=== PATIENT | female | born 1995 | race Caucasian/White ===

== ENCOUNTER 2016-07-23 20:56 | Emergency (ER) | payer BC, OTHER ==
[~2016-07-23] VITALS: Ht 167.6 cm; Wt 55.0 kg
[~2016-07-23 20:56] MED LIST: BACT800T5 PO; LORTA5 PO
[2016-07-23 20:57] VITALS: BP 148/86; PULSE 83; TEMP 98.8; O2SAT 100
[2016-07-23 21:08] VITALS: RESP 20
--- NOTE | 2016-07-23 21:25 | PD ---
HPI Chief Complaint: Headache Time Seen by Provider: 21:19 Travel History International Travel<30 days: No Contact w/Intl Traveler<30days: No Traveled to known affect area: No History of Present Illness HPI 20-year-old white female presents to emergency department for evaluation of headache. LOCATION: [place] QUALITY: Throbbing SEVERITY: 4/10 TIMING: Gradual onset DURATION: Since around 10 AM CONTACTS: Not applicable MODIFYING FACTORS: Worsened by noise and light. ASSOCIATED TIME AND SYMPTOMS: Associated nausea, dizziness, photophobia and feeling off balance. Patient states that she had an eye exam approximately one month ago was told that her eye pressures were mildly elevated. She was referred back to her doctor. She saw Dr. Gibbons who has ordered outpatient laboratory testing. She states that she has been too busy to have this done. She denies any history trauma. No history of prior headaches. No recent illness. She states that she typically takes Tylenol with relief of her headache. She took Tylenol at 10 AM this morning and she has not had anything since then. [facility] Past Medical History Narrative Medical Borderline elevated intraocular pressure Tetanus Vaccination: < 5 Years ?: Not LMP: 3 weeks ago : 1 Para: 1 Past Surgical History Narrative Surgical Laparotomy for blocked fallopian tube Genitourinary Surgery: Yes Social History Alcohol Use: Yes Tobacco Use: No Substance Use: No Allergies-Medications (Allergen,Severity, Reaction): Coded Allergies: No Known Allergies (Unverified , 07/23/16) Reported Meds & Prescriptions Reported Meds & Active Scripts Active No Active Prescriptions or Reported Medications Review of Systems Except as stated in HPI: all other systems reviewed are Neg Physical Exam Narrative GENERAL: Well-developed, well-nourished in no apparent distress. Nontoxic appearing. HEAD: Normocephalic, atraumatic. EYES: Pupils equal round and reactive. Extraocular motions intact. No scleral icterus. No injection or drainage. ENT: Nose clear. Throat without erythema, tonsillar hypertrophy or exudate. Uvula midline. Airway patent. NECK: Trachea midline. Supple, nontender, moves head freely. No central bony tenderness or spasm. CARDIOVASCULAR: Regular rate and rhythm without murmurs, gallops, or rubs. RESPIRATORY: Clear to auscultation. Breath sounds equal bilaterally. No wheezes , rales, or rhonchi. GASTROINTESTINAL: Abdomen soft, non-tender, nondistended. No hepato-splenomegaly , or palpable masses. No guarding. EXTREMITIES: No clubbing, cyanosis, or edema. No joint tenderness. BACK: Nontender without deformity. No flank tenderness. NEUROLOGICAL: Awake, alert and oriented x 3 .Cranial nerves grossly intact. Motor and sensory grossly within normal limits. Normal speech. Normal gait. Moves all extremities in a coordinated fashion. Data Data Last Documented VS Vital Signs Date Time Temp Pulse Resp B/P Pulse Ox O2 Delivery O2 Flow Rate FiO2 07/23/16 21:08 20 07/23/16 20:57 98.8 83 148/86 100 Room Air Orders Iv Access Insert/Monitor (07/23/16 21:17) Diphenhydramine Inj (Benadryl Inj) (07/23/16 21:30) Prochlorperazine Inj (Compazine Inj) (07/23/16 21:30) Sodium Chlor 0.9% 1000 Ml Inj (Ns 1000 M (07/23/16 21:30) Ct Brain W/O Iv Contrast(Rout) (07/23/16:17) Ed Urine Pregnancytest Poc (07/23/16:17) MDM Medical Decision Making Medical Screen Exam Complete: Yes Emergency Medical Condition: Yes Medical Record Reviewed: Yes Interpretation(s) Last [address] 07/23/162116 Signed Impressions: Service Date/Time: Saturday, July 23, 2016 22:43 - CONCLUSION: Normal noncontrast head CT. Edwin Thornton MD Differential Diagnosis MDM: High Differential diagnoses: Subarachnoid hemorrhage, intracranial bleed, aneurysm, pseudotumor, migraine, cluster headache, atypical migraine, temporal arteritis, connective tissue disorder, hypertension, temporal arteritis, sinusitis, sinus headache,malingering Narrative Course IV access is obtained. Patient's given Benadryl 50 mg IV, Compazine 10 mg IV and 1 L of normal saline IV. CT scan of the brain. CT of the brain is negative. Patient's headache is much improved. This is cephalgia Diagnosis Primary Impression: Cephalgia Qualified Code: R51 - Acute nonintractable headache, unspecified headache type Patient Instructions: General Instructions Additional Instructions: Rest. Increase fluids. Diclofenac for headache. Follow-up with a medical doctor this week for recheck. Return to the ER for emergencies. Med/Other Pt SpecificInfo: Prescription(s) given Scripts No Active Prescriptions or Reported Meds Disposition: 01 DISCHARGE HOME Condition: Stable Ishan Lopez July 23, 2016 21:25
[2016-07-23] MEDS ORDERED: SODIUM CHLOR 0.9% 1000 ML INJ 1,000 ML IV ONE (21:30)
[2016-07-23] MEDS ORDERED: diphenhydrAMINE HCL 50 MG/ML VIAL IV PUSH ONE (21:30)
[2016-07-23] MEDS ORDERED: PROCHLORPERAZINE INJ 10 MG/2 ML VIAL IV PUSH ONE (21:30)
--- NOTE | 2016-07-23 22:54 | RADRPT ---
EXAM DATE/TIME: 07/23/2016 22:43 [facility] COMPARISON: No previous studies available for comparison. INDICATIONS : Headache. RADIATION DOSE: 56.35 CTDIvol (mGy) MEDICAL HISTORY : None SURGICAL HISTORY : None. ENCOUNTER: Initial ACUITY: 1 day PAIN SCALE: 5/10 LOCATION: cranial TECHNIQUE: Multiple contiguous axial images were obtained of the head. Using automated exposure control and adj ustment of the mA and/or kV according to patient size, radiation dose was kept as low as reasonably a chievable to obtain optimal diagnostic quality images. FINDINGS: CEREBRUM: The ventricles are normal for age. No evidence of midline shift, mass lesion, hemorrhage or acute in farction. No extra-axial fluid collections are seen. POSTERIOR FOSSA: The cerebellum and brainstem are intact. The 4th ventricle is midline. The cerebellopontine angle i s unremarkable. EXTRACRANIAL: The visualized portion of the orbits is intact. Visualized paranasal sinuses and mastoid air cells ar e clear. SKULL: The calvaria is intact. No evidence of skull fracture. CONCLUSION: Normal noncontrast head CT. Edwin Thornton MD on July 23, 2016 at 22:50 Board Certified Radiologist. This report was verified electronically.
[2016-07-23] MEDS ORDERED: DICL50TA3 PO (23:08)
== END 2016-07-24 00:21 | disposition home or self-care (01) ==
LOC: NEPD 20:56
DX: R51 Headache (principal)
CPT/HCPCS: 70450; 84703; 96374; 96375; 99284; J0780; J1200; J7030

== ENCOUNTER 2016-11-14 22:55 | Emergency (ER) | payer BC ==
[~2016-11-14 22:55] MED LIST changes: -BACT800T5 PO; +DICL50TA3 PO; -LORTA5 PO
[2016-11-14 22:56] VITALS: BP 135/74; PULSE 98; RESP 16; TEMP 98.7; O2SAT 100
[2016-11-15 00:09] LABS: BACTERIA, URINE RARE /hpf; BLOOD, URINE SMALL (NEG); COMMENT (UR) CULTURE INDICATED; CULTURE IF INDICATED CULTURE INDICATED; GLUCOSE,URINE NEG (NEG); KETONE, URINE NEG (NEG); MUCUS URINE FEW /lpf (OCC); NITRITE,URINE NEG (NEG); PH, URINE 6.5 (5.0-8.5); SQUAMOUS EPITHELIAL CELL URINE <1 /hpf (0-5); URINE COLOR LIGHT-YELLOW (YELLW/STRAW)
[2016-11-15] MEDS ORDERED: CHOL5000 PO (00:10)
--- NOTE | 2016-11-15 00:47 | PD ---
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 She also states she has been having vaginal discharge. She states that she is having BV symptoms. She denies any nausea, vomiting, or any other symptoms. Modifying Factors: None Associated Signs & Symptoms: Vaginal discharge, lower back and lower abdominal discomfort Risk Factors: None PFSH Past Medical History Diminished Hearing: No Medical other: Yes (VIT D DIFICIENCY ) Immunizations Current: Yes ?: Not LMP: 10/31/16 : 1 Para: 1 Past Surgical History Genitourinary Surgery: Yes Other Surgery: Yes (SX ON L FALLOPIAN TUBE ) Social History Alcohol Use: Yes (OCC) Tobacco Use: No Substance Use: No Allergies-Medications (Allergen,Severity, Reaction): Coded Allergies: No Known Allergies (Unverified , 11/15/16) Reported Meds & Prescriptions Reported Meds & Active Scripts Active Reported Vitamin D3 (Cholecalciferol) 5,000 Unit Cap 5,000 Units PO DAILY Review of Systems Except as stated in HPI: all other systems reviewed are Neg Physical Exam Narrative GENERAL: Young white female patient currently none acute distress. Awake and oriented 3. SKIN: Focused skin assessment warm/dry. HEAD: Atraumatic. Normocephalic. EYES: Pupils equal and round. No scleral icterus. No injection or drainage. ENT: No nasal bleeding or discharge. Mucous membranes pink and moist. NECK: Trachea midline. No JVD. CARDIOVASCULAR: Regular rate and rhythm. No murmur appreciated. RESPIRATORY: No accessory muscle use. Clear to auscultation. Breath sounds equal bilaterally. GASTROINTESTINAL: Abdomen soft, mild suprapubic tenderness without guarding or rebound, nondistended. Hepatic and splenic margins not palpable. GENITOURINARY: Normal external genitalia without lesions or erythema. Vaginal vault without blood but notable for copious whitish drainage. Cervical os was closed without drainage. No cervical motion tenderness. Uterus nontender. MUSCULOSKELETAL: No obvious deformities. No clubbing. No cyanosis. No edema. NEUROLOGICAL: Awake and alert. No obvious cranial nerve deficits. Motor grossly within normal limits. Normal speech. PSYCHIATRIC: Appropriate mood and affect; insight and judgment normal. Data Data Last Documented VS Vital Signs Date Time Temp Pulse Resp B/P (MAP) Pulse Ox O2 Delivery O2 Flow Rate FiO2 11/14/16 22:56 98.7 98 16 135/74 (94) 100 Room Air Orders Orders Urinalysis - C+S If Indicated (11/14/16 23:38) Ed Urine Pregnancytest Poc (11/14/16 23:38) Urine Culture (11/14/16 23:30) Gc And Chlamydia Pcr (11/15/16 00:44) Wet Prep Profile (11/15/16 00:44) Labs Laboratory Tests Test 11/14/16 23:30 Urine Color LIGHT-YELLOW Urine Turbidity HAZY Urine pH 6.5 Urine Specific [place] 1.005 Urine Protein TRACE mg/dL Urine Glucose (UA) NEG mg/dL Urine Ketones NEG mg/dL Urine Occult Blood SMALL Urine Nitrite NEG Urine Bilirubin NEG Urine Urobilinogen LESS THAN 2.0 MG/DL Urine Leukocyte Esterase LARGE Urine RBC 2 /hpf Urine WBC /hpf Urine WBC Clumps FEW Urine Squamous Epithelial Cells <1 /hpf Urine Bacteria RARE /hpf Urine Mucus FEW /lpf Microscopic Urinalysis Comment CULTURE INDICATED MDM Medical Decision Making Medical Screen Exam Complete: Yes Emergency Medical Condition: Yes Medical Record Reviewed: Yes Interpretation(s) Laboratory Tests Test 11/14/16 23:30 Urine Turbidity HAZY (CLEAR) Urine Occult Blood SMALL (NEG) Urine Leukocyte Esterase LARGE (NEG) Urine WBC Clumps FEW (NONE) Urine Bacteria RARE /hpf (NONE) Urine Mucus FEW /lpf (OCC) Differential Diagnosis versus UTI versus cervicitis versus BV Narrative Course Patient is not . UA does show signs of UTI. Pelvic exam shows significant whitish discharge. My plan would be to give her treatment for bacterial vaginosis as well as UTI. 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 Return for any worsening in symptoms as needed. The plan has discussed with her and she states understanding. Diagnosis Primary Impression: UTI (urinary tract infection) Additional Impression: Vaginal discharge Med/Other Pt SpecificInfo: Prescription(s) given Scripts Metronidazole (Flagyl) 500 Mg Tab 500 MG PO TID for Infection for 7 Days, TAB 0 Refills Prov: Soontharothai,Rewadee MD 11/15/16 Sulfamethoxazole-Trimethoprim (Bactrim DS) 800-160 Mg Tab 1 TAB PO BID for Infection, #14 TAB 0 Refills Prov: Iris Rojas MD 11/15/16 Disposition: 01 DISCHARGE HOME Condition: Stable Iris Rojas MD Nov 15, 2016 00:47
[2016-11-15] MEDS ORDERED: BACT800T5 PO (03:08)
[2016-11-15] MEDS ORDERED: METR-1 PO (03:08)
[2016-11-15 06:57] LABS: CHLAMYDIA PCR NOT DETECTED (NOT DETECT); NEISSERIA PCR NOT DETECTED (NOT DETECT)
== END 2016-11-15 03:40 | disposition home or self-care (01) ==
LOC: NEPC 22:55
DX: N39.0 Urinary tract infection, site not specified (principal); B96.20 Unspecified Escherichia coli [E. coli] as the cause of diseases classified elsewhere; N89.8 Other specified noninflammatory disorders of vagina
CPT/HCPCS: 81001; 84703; 87077; 87086; 87186; 87210; 87491; 87591; 99284

== ENCOUNTER 2017-06-26 01:24 | Emergency (ER) | payer BC ==
[~2017-06-26] VITALS: Ht 170.2 cm; Wt 53.0 kg
[~2017-06-26 01:24] MED LIST changes: +BACT800T5 PO; +CHOL5000 PO; -DICL50TA3 PO; +METR-1 PO
[2017-06-26 01:39] VITALS: BP 130/71; PULSE 76; RESP 15; TEMP 98.2; O2SAT 100
--- NOTE | 2017-06-26 02:01 | PD ---
HPI Chief Complaint: Related Problem Time Seen by Provider: 01:54 Travel History International Travel<30 days: No Contact w/Intl Traveler<30days: No Traveled to known affect area: No History of Present Illness HPI 21-year-old female , approximately 7 weeks , LMP May 08, here for evaluation of vaginal bleeding and lower abdominal cramping. The patient first noted bleeding at around 11:00 PM. She then took a nap and woke up to slightly heavier bleeding. She states that the bleeding has lessened and now has late spotting. She was having some lower abdominal cramping. No urinary symptoms. No fevers. She had a procedure on her left fallopian tube where she had removal of some ectopic tissue several years ago. No vaginal discharge other than bleeding. She has not yet had an ultrasound to confirm an IUP. [facility] Past Medical History Medical History: Denies Significant Hx Diminished Hearing: No Immunizations Current: Yes Tetanus Vaccination: Unknown Influenza Vaccination: Yes ?: : 1 Para: 1 Past Surgical History Genitourinary Surgery: Yes Gynecologic Surgery: Yes (SX ON L FALLOPIAN TUBE ) Other Surgery: Yes (SX ON L FALLOPIAN TUBE ) Social History Alcohol Use: No Tobacco Use: No Substance Use: No Allergies-Medications (Allergen,Severity, Reaction): Coded Allergies: No Known Allergies (Unverified Adverse Reaction, Unknown, 06/26/17) Reported Meds & Prescriptions Reported Meds & Active Scripts Active Keflex (Cephalexin) 250 Mg Cap 250 Mg PO BID 5 Days Reported Gummies (Irj470/FA/Omega3/Dha/Fish Oil) 400 Mcg-32.5 Mg (25 Mg-7.5 Mg) Tab.chew Vitamin D3 (Cholecalciferol) 5,000 Unit Cap 5,000 Units PO DAILY Review of Systems Except as stated in HPI: all other systems reviewed are Neg Physical Exam Narrative GENERAL: Well-developed, well-nourished, comfortable, no apparent distress. SKIN: Focused skin assessment warm/dry. HEAD: Atraumatic. Normocephalic. EYES: Pupils equal and round. No scleral icterus. No injection or drainage. ENT: No nasal bleeding or discharge. Mucous membranes pink and moist. NECK: Trachea midline. No JVD. CARDIOVASCULAR: Regular rate and rhythm. RESPIRATORY: No accessory muscle use. Clear to auscultation. Breath sounds equal bilaterally. GASTROINTESTINAL: Abdomen soft, non-tender, nondistended. [employer]: Exam performed in the presence of a female nurse. Normal external genitalia. Scant blood in vaginal vault. Cervical osseous closed. MUSCULOSKELETAL: No obvious deformities. No clubbing. No cyanosis. No edema. NEUROLOGICAL: Awake and alert. No obvious cranial nerve deficits. Motor grossly within normal limits. Normal speech. PSYCHIATRIC: Appropriate mood and affect; insight and judgment normal. Data Data Last Documented VS Vital Signs Date Time Temp Pulse Resp B/P (MAP) Pulse Ox O2 Delivery O2 Flow Rate FiO2 06/26/17 01:39 98.2 76 15 130/71 (90) 100 Orders Orders Beta Hcg (Quant/Titer) (06/26/17 01:58) Complete Blood Count With Diff (06/26/17 01:58) Comprehensive Metabolic Panel (06/26/17 01:58) Urinalysis - C+S If Indicated (06/26/17 01:58) Ed Urine Pregnancytest Poc (06/26/17 01:58) Type And Screen (06/26/17 01:58) Us Pelvis (Ques Pr/Ect)W Trans (06/26/17 ) Gc And Chlamydia Pcr (06/26/17 05:06) Wet Prep Profile (06/26/17 05:06) Ed Discharge Order (06/26/17 05:55) Labs Laboratory Tests Test 06/26/17 02:15 06/26/17 05:20 White Blood Count 10.7 TH/MM3 Red Blood Count 4.04 MIL/MM3 Hemoglobin 12.3 GM/DL Hematocrit 36.5 % Mean Corpuscular Volume 90.4 FL Mean Corpuscular Hemoglobin 30.5 PG Mean Corpuscular Hemoglobin Concent 33.8 % Red Cell Distribution Width 12.7 % Platelet Count 274 TH/MM3 Mean Platelet Volume 7.8 FL Neutrophils (%) (Auto) 60.8 % Lymphocytes (%) (Auto) 26.7 % Monocytes (%) (Auto) 10.0 % Eosinophils (%) (Auto) 1.5 % Basophils (%) (Auto) 1.0 % Neutrophils # (Auto) 6.5 TH/MM3 Lymphocytes # (Auto) 2.9 TH/MM3 Monocytes # (Auto) 1.1 TH/MM3 Eosinophils # (Auto) 0.2 TH/MM3 Basophils # (Auto) 0.1 TH/MM3 CBC Comment DIFF FINAL Differential Comment Urine Color COLORLESS Urine Turbidity CLEAR Urine pH 7.5 Urine Specific [place] 1.005 Urine Protein NEG mg/dL Urine Glucose (UA) NEG mg/dL Urine Ketones NEG mg/dL Urine Occult Blood NEG Urine Nitrite NEG Urine Bilirubin NEG Urine Urobilinogen LESS THAN 2.0 MG/DL Urine Leukocyte Esterase NEG Urine RBC LESS THAN 1 /hpf Urine WBC LESS THAN 1 /hpf Urine Squamous Epithelial Cells 2 /hpf Urine Bacteria RARE /hpf Microscopic Urinalysis Comment CULT NOT INDICATED Blood Urea Nitrogen 14 MG/DL Creatinine 0.57 MG/DL Random Glucose 80 MG/DL Total Protein 7.0 GM/DL Albumin 3.7 GM/DL Calcium Level 8.7 MG/DL Alkaline Phosphatase 55 U/L Aspartate Amino Transf (AST/SGOT) 17 U/L Alanine Aminotransferase (ALT/SGPT) 50 U/L Total Bilirubin 0.2 MG/DL Sodium Level 141 MEQ/L Potassium Level 3.4 MEQ/L Chloride Level 105 MEQ/L Carbon Dioxide Level 28.7 MEQ/L Anion Gap 7 MEQ/L Estimat Glomerular Filtration Rate 131 ML/MIN Human Chorionic Gonadotropin, Quant 4480 MIU/ML Clue Cells (Wet Prep) NONE SEEN Vaginal Trichomonas (Wet Prep) NONE SEEN Vaginal Yeast (Wet Prep) NONE SEEN MDM Medical Decision Making Medical Screen Exam Complete: Yes Emergency Medical Condition: Yes Medical Record Reviewed: Yes Differential Diagnosis Ectopic , threatened , inevitable , missed , implantation bleed Narrative Course Vital signs reviewed. CBC is unremarkable. CMP is unremarkable. Beta-hCG is 4480. UA shows rare bacteria, otherwise unremarkable. Wet prep: Is negative for yeast, negative for clue cells, negative for trichomonas. Pelvic ultrasound: IUP with heart rate of 106 bpm. Blood type is O+. The patient was made aware of all findings. She is resting comfortably. She will be started on Keflex for bacteriuria in . She has an appointment with Dr. Joshi in 2 weeks. Pelvic rest endorsed. She is stable for discharge home with outpatient follow-up. She was advised on when to return to the emergency department patient verbalizes understanding and agreement with plan. 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 Return to the emergency department for worsening symptoms or any other concerns. Scripts Cephalexin (Keflex) 250 Mg Cap 250 MG PO BID for Infection for 5 Days, #10 CAP 0 Refills Prov: Ahmet Solomon MD 06/26/17 Disposition: 01 DISCHARGE HOME Condition: Stable Ahmet Solomon MD Jun 26, 2017 02:01
[2017-06-26] MEDS ORDERED: PNV11TAB (02:21)
[2017-06-26 02:35] LABS: AUTOMATED NEUTROPHIL # 6.5 TH/MM3 (1.8-7.7); BASOPHIL # 0.1 TH/MM3 (0-0.2); EOSINOPHIL # 0.2 TH/MM3 (0-0.4); EOSINOPHIL % 1.5 % (0.0-4.0); HEMATOCRIT 36.5 % (35.0-46.0); HEMOGLOBIN 12.3 GM/DL (11.6-15.3); LYMPH % 26.7 % (9.0-44.0); LYMPHOCYTE # 2.9 TH/MM3 (1.0-4.8); MEAN CELL VOLUME 90.4 FL (80.0-100.0); MEAN CORPUSCULAR HEMOGLOBIN 30.5 PG (27.0-34.0); MEAN CORPUSCULAR HGB CONC 33.8 % (32.0-36.0); MEAN PLATELET VOLUME 7.8 FL (7.0-11.0); MONOCYTE # 1.1 TH/MM3 (0-0.9); NEUT % 60.8 % (16.0-70.0); PLATELET COUNT 274 TH/MM3 (150-450); RED BLOOD COUNT 4.04 MIL/MM3 (4.00-5.30); RED CELL DISTRIBUTION WIDTH 12.7 % (11.6-17.2); WHITE BLOOD COUNT 10.7 TH/MM3 (4.0-11.0)
[2017-06-26 02:53] LABS: BACTERIA, URINE RARE /hpf; BILIRUBIN, URINE NEG (NEG); BLOOD, URINE NEG (NEG); GLUCOSE,URINE NEG (NEG); KETONE, URINE NEG (NEG); NITRITE,URINE NEG (NEG); PH, URINE 7.5 (5.0-8.5); SQUAMOUS EPITHELIAL CELL URINE 2 /hpf (0-5); URINE COLOR COLORLESS (YELLW/STRAW); URINE LEUKOCYTE ESTERASE NEG (NEG)
[2017-06-26 02:55] LABS: ALBUMIN 3.7 GM/DL (3.4-5.0); ALT (GPT) 50 U/L (10-53); AST (GOT) 17 U/L (15-37); BICARBONATE 28.7 MEQ/L (21.0-32.0); BLOOD UREA NITROGEN 14 MG/DL (7-18); CALCIUM 8.7 MG/DL (8.5-10.1); CHLORIDE 105 MEQ/L (98-107); CREATININE 0.57 MG/DL (0.50-1.00); GLOMERULAR FILTRATION RATE 131 ML/MIN (>89); GLUCOSE,RANDOM 80 MG/DL (74-106); SODIUM (NA) 141 MEQ/L (136-145)
[2017-06-26 03:11] LABS: ALKALINE PHOSPHATASE 55 U/L (45-117); TOTAL BILIRUBIN ADULT 0.2 MG/DL (0.2-1.0)
--- NOTE | 2017-06-26 04:55 | RADRPT ---
EXAM DATE/TIME: 06/26/2017 03:12 [facility] COMPARISON: No previous studies available for comparison. INDICATIONS : Bleeding. LAB(S): Beta-hC,480 MEDICAL HISTORY : . SURGICAL HISTORY : Left fallopian tube surgery. ENCOUNTER: Initial ACUITY: 1 day PAIN SCORE: 0/10 LOCATION: pelvis MEASUREMENTS: UTERUS: 10.3 x 6.7 x 5.0 cm ENDOMETRIAL STRIPE: 12 mm RIGHT OVARY: 2.8 x 3.0 x 2.5 cm LEFT OVARY: 3.0 x 2.4 x 1.5 cm FREE FLUID: Yes Trace amount of fluid. CROWN RUMP LENGTH: 0.35 cm = 6 WKS 0 DAYS FHR: 106 BPM FINDINGS: UTERUS: Intrauterine gestational sac is seen in the body/fundus. Mean sac diameter is too small for accurate estimate of gestational age. pole is identified. Approximate gestational age by crown-rump blake th is 6 weeks zero days. heart activity is seen with approximate heart rate of 106 beats per minute. Nabothian cysts noted in the cervix. RIGHT OVARY: Within normal limits. LEFT OVARY: Within normal limits. MISCELLANEOUS: Small amount of free fluid in the cul-de-sac. CONCLUSION: Intrauterine identified. pole is seen. heart activity is seen w ith approximate heart rate of 106 beats per minute. David Reed MD on June 26, 2017 at 4:49 Board Certified Radiologist. This report was verified electronically.
[2017-06-26] MEDS ORDERED: CEPH-459 PO (05:54)
== END 2017-06-26 06:18 | disposition home or self-care (01) ==
LOC: NEPE 01:24
DX: O20.9 Hemorrhage in early pregnancy, unspecified (principal); R82.71 Bacteriuria; Z3A.01 Less than 8 weeks gestation of pregnancy
CPT/HCPCS: 76700; 76817; 80053; 81001; 84702; 84703; 85025; 86850; 86900; 86901; 87210; 87491; 87591; 99284

== ENCOUNTER 2017-06-26 14:11 | Emergency (ER) | payer BC ==
[~2017-06-26] VITALS: Ht 172.7 cm; Wt 53.0 kg
[~2017-06-26 14:11] MED LIST changes: +CEPH-459 PO; +PNV11TAB
[2017-06-26 14:30] VITALS: BP 104/56; PULSE 59; RESP 18; TEMP 98.5; O2SAT 100
[2017-06-26 14:59] VITALS: BP 110/61
--- NOTE | 2017-06-26 15:08 | PD ---
HPI Chief Complaint: Related Problem Time Seen by Provider: 14:52 Travel History International Travel<30 days: No Contact w/Intl Traveler<30days: No Traveled to known affect area: No History of Present Illness HPI 21 year old female presents to the emergency department for re-evaluation of bleeding during . Patient was see in the ED approximately 12 hours ago for the same issue. She states that she laid down and upon waking up, the vaginal bleeding was heavier. She states she is still on her first pad since this morning. Patient is a G2, P1. Patient had labs, pelvic, us completed last night. Patient reports abdominal cramping, 07/28, unchanged. She denies any dizziness, syncope. No chest pain or SOB. Mild severity. History Past Medical Histgory LMP: 05/08/17 Social History Alcohol Use: No Tobacco Use: No Allergies-Medications (Allergen,Severity, Reaction): Coded Allergies: No Known Allergies (Unverified Adverse Reaction, Unknown, 06/26/17) Reported Meds & Prescriptions Reported Meds & Active Scripts Active Keflex (Cephalexin) 250 Mg Cap 250 Mg PO BID 5 Days Reported Gummies (Ooc282/FA/Omega3/Dha/Fish Oil) 400 Mcg-32.5 Mg (25 Mg-7.5 Mg) Tab.chew Vitamin D3 (Cholecalciferol) 5,000 Unit Cap 5,000 Units PO DAILY Review of Systems Except as stated in HPI: all other systems reviewed are Neg Physical Exam Narrative GENERAL: Well developed, well nourished female patient, ambulatory, afebrile and in no acute distress. SKIN: Warm and dry. HEAD: Normocephalic. Atraumatic. EYES: No scleral icterus. No injection or drainage. NECK: Supple, trachea midline. No JVD or lymphadenopathy. CARDIOVASCULAR: Regular rate and rhythm without murmurs, gallops, or rubs. RESPIRATORY: Breath sounds equal bilaterally. No accessory muscle use. Lung sounds are clear to auscultation. GASTROINTESTINAL: Abdomen soft, non-tender, nondistended. MUSCULOSKELETAL: No cyanosis, or edema. BACK: Nontender without obvious deformity. No CVA tenderness. Data Data Last Documented VS Vital Signs Date Time Temp Pulse Resp B/P (MAP) Pulse Ox O2 Delivery O2 Flow Rate FiO2 06/26/17 14:30 98.5 59 18 104/56 (72) 100 MDM Medical Screen Exam Complete: Yes Emergency Medical Condition: No Differential Diagnosis threatened Narrative Course 21 year old female presents to the emergency department for evaluation of bleeding during . Patient was seen approximately 12 hours ago in the ED for the same. CBC showed no acute abnormalities. CMP showed no acute abnormalities. Beta HCG was 4,480. UA showed no acute infection. Wet prep and swab for chlamydia/gonorrhea were negative. US showed 6 week, 0 day intrauterine with HR of 106. Vital signs are stable with a BP of 110/ 61. Patient's blood type is O+. She has no new complaints. Patient is instructed to continue pelvic rest, over the counter Tylenol as needed for pain , and follow up with OB. She verbalized agreement. No emergent condition is identified during today's visit. A medical screening exam was performed: At the time of evaluation the presenting medical condition was determined not to be of an emergent nature. The patient was given the option of receiving additional care, but declined. Patient was given options for additional community resources from which to obtain care. The Patient Has Been advised to seek medical attention for their presenting complaint. The patient has been advised to return to the ER at any time if an emergent condition develops. Primary Impression: Encounter for medical screening examination Condition: Stable Rosmery Vazquez Jun 26, 2017 15:08
== END 2017-06-26 15:06 | disposition left against medical advice (07) ==
LOC: NEPC 14:11
DX: O46.90 Antepartum hemorrhage, unspecified, unspecified trimester (principal); Z3A.00 Weeks of gestation of pregnancy not specified
CPT/HCPCS: 99281